=== PATIENT | male | born 1930 | race Caucasian/White ===

== ENCOUNTER 2018-09-23 11:35 | Inpatient (IN) | payer MEDICARE, OTHER ==
[~2018-09-23] VITALS: Ht 167.6 cm; Wt 89.1 kg
[2018-09-23] MEDS ORDERED: METO-93 PO (12:16)
[2018-09-23] MEDS ORDERED: ASPI81TA45 PO (12:16)
[2018-09-23] MEDS ORDERED: DOXA4TAB3 PO (12:16)
[2018-09-23] MEDS ORDERED: LISI-170 PO ×2 (12:16)
[2018-09-23] MEDS ORDERED: OMEP-110 PO (12:16)
[2018-09-23] MEDS ORDERED: DOXA1TAB2 PO (12:16)
[2018-09-23] MEDS ORDERED: TIMO2.5D3 LEFTEYE (12:16)
[2018-09-23] MEDS ORDERED: DILT-8 PO (12:16)
[2018-09-23] MEDS ORDERED: MULT-751 PO (12:16)
[2018-09-23] MEDS ORDERED: SIMV40TA3 PO (12:16)
[2018-09-23] MEDS ORDERED: POTA20TA14 PO (12:16)
[2018-09-23] MEDS ORDERED: LATA7.5D LEFTEYE (12:16)
[2018-09-23] MEDS ORDERED: KRIL1CAP31 PO (12:16)
[2018-09-23] MEDS ORDERED: FURO20TA3 PO (12:16)
[2018-09-23] MEDS ORDERED: ALBUTEROL/IPRATROPIUM 2.5MG/0.5MG, 3 ML ONE (12:17)
--- NOTE | 2018-09-23 12:20 | NUR ---
Patient transported for chest xray
[2018-09-23] MEDS ORDERED: ALBUTEROL/IPRATROPIUM 2.5MG/0.5MG, 3 ML NPPB ONE (12:30)
[2018-09-23 12:36] LABS: BASOPHILS % (AUTO) 0 % (0-1); EOSINOPHILS # (AUTO) 0.03 x10^3/uL (0-0.4); EOSINOPHILS % (AUTO) 0 % (1-7); LYMPHOCYTES # (AUTO) 1.08 x10^3/uL (1-3.4); LYMPHOCYTES % (AUTO) 13 % (22-44); MD NO; MEAN CORPUSCULAR HEMOGLOBIN 32.9 pg (27.5-34.5); MEAN CORPUSCULAR HGB CONC 34.1 g/dL (33.2-36.2); MEAN CORPUSCULAR VOLUME 96.5 fL (81-97); MEAN PLATELET VOLUME 9.4 fL (7.4-10.4); MONOCYTES # (AUTO) 0.62 x10^3/uL (0.2-0.8); MONOCYTES % (AUTO) 7 % (2-9); NEUTROPHILS % (AUTO) 79 % (42-75); PLATELET COUNT 138 x10^3/uL (130-400); RED BLOOD COUNT 3.57 x10^6/uL (4.38-5.82); RED CELL DISTRIBUTION WIDTH 12.8 % (9.4-14.8)
[2018-09-23 12:40] LABS: ALBUMIN 3.4 g/dL (3.4-5.0); ANION GAP 9 mmol/L (5-15); CALCIUM 8.7 mg/dL (8.5-10.1); CHLORIDE 94 mmol/L (98-107)
[2018-09-23 12:44] LABS: ALANINE AMINOTRANSFERASE 33 U/L (12-78); ALKALINE PHOSPHATASE 73 U/L (45-117); BILIRUBIN,TOTAL 0.6 mg/dL (0.2-1.0); CREATININE 0.94 mg/dL (0.7-1.3); TOTAL PROTEIN 6.7 g/dL (6.4-8.2)
--- NOTE | 2018-09-23 14:12 | NUR ---
Pt back from CT, report from Kody HENNESSY. Family at bedside, pt and family deny any needs/concerns.
[2018-09-23] MEDS ORDERED: AZITHROMYCIN 500 MG in SODIUM CHLORIDE 0.9% 250 ML IV ONE (15:30)
[2018-09-23] MEDS ORDERED: CEFTRIAXONE PMX 1GM/50ML 50 ML IV ONE (15:30)
--- NOTE | 2018-09-23 15:39 | NUR ---
Cultures drawn x2
[2018-09-23] MEDS ORDERED: CEFTRIAXONE PMX 1GM/50ML 50 ML ONE (15:44)
[2018-09-23] MEDS ORDERED: SODIUM CHLORIDE 0.9% 1,000 ML IV ONE (16:00)
--- NOTE | 2018-09-23 16:05 | NUR ---
Report to floor RN, abx infusing, pt ready for transport.
[2018-09-23] MEDS: CEFTRIAXONE PMX 1GM/50ML 50 ML IV SCH (16:30)
--- NOTE | 2018-09-23 16:41 | NUR ---
Rocephin complete, zimaisha infusing to floor.
[2018-09-23] MEDS ORDERED: GUAIFENESIN/COD200MG-20MG/10ML LIQUID PO PRN (17:00)
[2018-09-23] MEDS ORDERED: ACETAMINOPHEN 650 MG SUPP PR PRN (17:00)
[2018-09-23] MEDS ORDERED: DOCUSATE 100 MG CAPSULE PO PRN (17:00)
[2018-09-23] MEDS ORDERED: PHARMACY MAY ADJ FOR RENAL FX MC PRN (17:00)
[2018-09-23] MEDS ORDERED: ONDANSETRON 2MG/ML, 2ML IVPB PRN (17:00)
[2018-09-23] MEDS ORDERED: ACETAMINOPHEN 325 MG TABLET PO PRN (17:00)
[2018-09-23 17:13] LABS: THYROID STIMULATING HORMONE 7.23 mIU/L (0.358-3.740)
[2018-09-23] MEDS: GUAIFENESIN 200 MG TABLET PO SCH ×2 (17:20→20:31)
[2018-09-23] MEDS: SODIUM CHLORIDE 0.9% 1,000 ML IV SCH (17:21)
[2018-09-23] MEDS: ENOXAPARIN 40 MG/0.4 ML SQ SCH (17:21)
[2018-09-23] MEDS: DOXYCYCLINE 100 MG in DEXTROSE 5% 250 ML IV SCH (18:31)
[2018-09-23 20:17] VITALS: BP 128/86
[2018-09-23] MEDS: ASPIRIN 81 MG TABLET EC PO SCH (20:31)
[2018-09-23] MEDS: LISINOPRIL 20 MG TABLET PO SCH (20:31)
[2018-09-23] MEDS: SIMVASTATIN 40 MG TABLET PO SCH (20:31)
[2018-09-23] MEDS: DOXAZOSIN 2MG TABLET PO SCH (20:31)
[2018-09-23] MEDS: TIMOLOL OPHTH 0.5%, 5ML LEFTEYE SCH (21:00)
[2018-09-23] MEDS: LATANOPROST OPHTH 0.005%, 2.5ML LEFTEYE SCH (21:51)
[2018-09-23] MEDS: SODIUM CHLORIDE NASAL SPRAY 45ML BOTTLE NAS SCH (21:52)
[2018-09-23 22:14] LABS: MICROSCOPIC NOT IND
[2018-09-23 22:16] LABS: CULTURE INDICATED? NO
[2018-09-24 01:41] VITALS: BP 177/80
[2018-09-24] MEDS: DOXYCYCLINE 100 MG in DEXTROSE 5% 250 ML IV SCH ×2 (05:53→19:08)
[2018-09-24] MEDS: GUAIFENESIN 200 MG TABLET PO SCH ×2 (05:53→11:53)
[2018-09-24 06:15] LABS: BASOPHILS # (AUTO) 0.01 x10^3/uL (0-0.1); BASOPHILS % (AUTO) 0 % (0-1); EOSINOPHILS # (AUTO) 0.02 x10^3/uL (0-0.4); EOSINOPHILS % (AUTO) 0 % (1-7); LYMPHOCYTES # (AUTO) 0.97 x10^3/uL (1-3.4); LYMPHOCYTES % (AUTO) 14 % (22-44); MD NO; MEAN CORPUSCULAR HEMOGLOBIN 33.2 pg (27.5-34.5); MEAN CORPUSCULAR HGB CONC 34.5 g/dL (33.2-36.2); MEAN CORPUSCULAR VOLUME 96.2 fL (81-97); MEAN PLATELET VOLUME 10.8 fL (7.4-10.4); MONOCYTES # (AUTO) 0.56 x10^3/uL (0.2-0.8); MONOCYTES % (AUTO) 8 % (2-9); NEUTROPHILS # (AUTO) 5.59 x10^3/uL (1.8-6.8); NEUTROPHILS % (AUTO) 78 % (42-75); PLATELET COUNT 132 x10^3/uL (130-400); RED BLOOD COUNT 3.26 x10^6/uL (4.38-5.82); RED CELL DISTRIBUTION WIDTH 12.6 % (9.4-14.8)
[2018-09-24 06:22] LABS: ANION GAP 9 mmol/L (5-15); CALCIUM 8.3 mg/dL (8.5-10.1); CHLORIDE 93 mmol/L (98-107)
[2018-09-24 06:23] LABS: CREATININE 0.86 mg/dL (0.7-1.3)
[2018-09-24 07:36] VITALS: BP 181/80
[2018-09-24] MEDS: OMEPRAZOLE 20 MG CAPSULE.DR PO SCH (08:16)
[2018-09-24] MEDS: SODIUM CHLORIDE NASAL SPRAY 45ML BOTTLE NAS SCH ×2 (08:16→21:17)
[2018-09-24] MEDS: METOPROLOL SUCCINATE 50 MG TAB.ER.24H PO SCH (08:16)
[2018-09-24] MEDS: DOXAZOSIN 1MG TABLET PO SCH (08:16)
[2018-09-24] MEDS: DILTIAZEM 120 MG CAP.ER.24H PO SCH (08:16)
[2018-09-24] MEDS: OMEGA-3/FISH OIL CAPSULE PO SCH (08:16)
[2018-09-24] MEDS: MULTIVITAMINS/MINERALS TABLET PO SCH (08:16)
[2018-09-24] MEDS: SODIUM CHLORIDE 0.9% 1,000 ML IV SCH (08:22)
[2018-09-24] MEDS: TIMOLOL OPHTH 0.5%, 5ML LEFTEYE SCH ×2 (09:00→21:00)
[2018-09-24 13:23] VITALS: BP 179/84
[2018-09-24] MEDS ORDERED: FUROSEMIDE 40 MG/4 ML IV ONE (16:30)
[2018-09-24] MEDS: ENOXAPARIN 40 MG/0.4 ML SQ SCH (17:16)
[2018-09-24] MEDS: CEFTRIAXONE PMX 1GM/50ML 50 ML IV SCH (18:10)
[2018-09-24 19:21] VITALS: BP 193/99
[2018-09-24] MEDS: DOXAZOSIN 2MG TABLET PO SCH (21:15)
[2018-09-24] MEDS: SIMVASTATIN 40 MG TABLET PO SCH (21:16)
[2018-09-24] MEDS: GUAIFENESIN ER 600 MG TABLET PO SCH (21:16)
[2018-09-24] MEDS: LISINOPRIL 20 MG TABLET PO SCH (21:16)
[2018-09-24] MEDS: ASPIRIN 81 MG TABLET EC PO SCH (21:17)
[2018-09-24] MEDS: LATANOPROST OPHTH 0.005%, 2.5ML LEFTEYE SCH (21:17)
[2018-09-25] MEDS: DIPHENHYDRAMINE 25 MG CAPSULE PO PRN (00:35)
[2018-09-25 00:43] VITALS: BP 169/89
[2018-09-25] MEDS: DOXYCYCLINE 100 MG in DEXTROSE 5% 250 ML IV SCH ×2 (06:12→17:37)
[2018-09-25 08:06] VITALS: BP 143/90
[2018-09-25 08:31] LABS: BASOPHILS # (AUTO) 0.02 x10^3/uL (0-0.1); BASOPHILS % (AUTO) 0 % (0-1); EOSINOPHILS % (AUTO) 0 % (1-7); LYMPHOCYTES # (AUTO) 1.01 x10^3/uL (1-3.4); LYMPHOCYTES % (AUTO) 10 % (22-44); MD NO; MEAN CORPUSCULAR HEMOGLOBIN 32.3 pg (27.5-34.5); MEAN CORPUSCULAR VOLUME 95.1 fL (81-97); MONOCYTES # (AUTO) 0.68 x10^3/uL (0.2-0.8); MONOCYTES % (AUTO) 7 % (2-9); NEUTROPHILS # (AUTO) 7.98 x10^3/uL (1.8-6.8); NEUTROPHILS % (AUTO) 82 % (42-75); PLATELET COUNT 159 x10^3/uL (130-400); RED BLOOD COUNT 3.45 x10^6/uL (4.38-5.82); RED CELL DISTRIBUTION WIDTH 12.7 % (9.4-14.8)
[2018-09-25 08:38] LABS: ANION GAP 11 mmol/L (5-15); CALCIUM 8.3 mg/dL (8.5-10.1); CHLORIDE 86 mmol/L (98-107); CREATININE 0.84 mg/dL (0.7-1.3)
[2018-09-25] MEDS: TIMOLOL OPHTH 0.5%, 5ML LEFTEYE SCH ×2 (09:00→19:11)
[2018-09-25] MEDS ORDERED: FUROSEMIDE 40 MG/4 ML IV SCH (09:00)
[2018-09-25] MEDS: MULTIVITAMINS/MINERALS TABLET PO SCH (10:00)
[2018-09-25] MEDS: OMEPRAZOLE 20 MG CAPSULE.DR PO SCH (10:00)
[2018-09-25] MEDS: METOPROLOL SUCCINATE 50 MG TAB.ER.24H PO SCH (10:00)
[2018-09-25] MEDS: DOXAZOSIN 1MG TABLET PO SCH (10:00)
[2018-09-25] MEDS: OMEGA-3/FISH OIL CAPSULE PO SCH (10:00)
[2018-09-25] MEDS: DILTIAZEM 120 MG CAP.ER.24H PO SCH (10:01)
[2018-09-25] MEDS: GUAIFENESIN ER 600 MG TABLET PO SCH ×2 (10:01→20:47)
[2018-09-25] MEDS: SODIUM CHLORIDE NASAL SPRAY 45ML BOTTLE NAS SCH ×2 (10:01→20:46)
[2018-09-25] MEDS ORDERED: POTASSIUM CHLORIDE 20 MEQ TAB.ER.PRT PO ONE (10:30)
[2018-09-25] MEDS ORDERED: MAGNESIUM SULFATE PMX 2GM/50ML 50 ML IV ONE (11:00)
[2018-09-25] MEDS: SODIUM CHLORIDE 0.9% 1,000 ML IV SCH ×2 (11:20→20:46)
[2018-09-25 12:14] VITALS: BP 138/88
[2018-09-25 14:49] LABS: CHLORIDE,URINE RANDOM 120 mmol/L; POTASSIUM,URINE RANDOM 53 mmol/L; SODIUM,URINE RANDOM 59 mmol/L
[2018-09-25 15:46] LABS: OSMOLALITY,URINE 356 mOsm/kg (500-850)
[2018-09-25] MEDS: ENOXAPARIN 40 MG/0.4 ML SQ SCH (17:04)
[2018-09-25] MEDS: CEFTRIAXONE PMX 1GM/50ML 50 ML IV SCH (17:04)
[2018-09-25] MEDS: LATANOPROST OPHTH 0.005%, 2.5ML LEFTEYE SCH (19:11)
[2018-09-25 19:14] VITALS: BP 130/75
[2018-09-25] MEDS: SIMVASTATIN 40 MG TABLET PO SCH (20:47)
[2018-09-25] MEDS: DOXAZOSIN 2MG TABLET PO SCH (20:47)
[2018-09-25] MEDS: LISINOPRIL 20 MG TABLET PO SCH (20:47)
[2018-09-25] MEDS: ASPIRIN 81 MG TABLET EC PO SCH (20:47)
[2018-09-26 03:10] VITALS: BP 131/77
[2018-09-26] MEDS: DOXYCYCLINE 100 MG in DEXTROSE 5% 250 ML IV SCH (06:07)
[2018-09-26 06:53] VITALS: BP 148/64
[2018-09-26] MEDS: SODIUM CHLORIDE 0.9% 1,000 ML IV SCH (08:00)
[2018-09-26 08:59] LABS: ALBUMIN 2.7 g/dL (3.4-5.0); ANION GAP 8 mmol/L (5-15); CALCIUM 7.8 mg/dL (8.5-10.1); CHLORIDE 85 mmol/L (98-107); CREATININE 0.75 mg/dL (0.7-1.3)
[2018-09-26] MEDS: MULTIVITAMINS/MINERALS TABLET PO SCH (09:00)
[2018-09-26] MEDS: DILTIAZEM 120 MG CAP.ER.24H PO SCH (09:00)
[2018-09-26] MEDS: SODIUM CHLORIDE NASAL SPRAY 45ML BOTTLE NAS SCH ×2 (09:00→20:30)
[2018-09-26] MEDS: GUAIFENESIN ER 600 MG TABLET PO SCH ×2 (09:00→20:30)
[2018-09-26] MEDS: OMEGA-3/FISH OIL CAPSULE PO SCH (09:00)
[2018-09-26] MEDS: DOXAZOSIN 1MG TABLET PO SCH (09:00)
[2018-09-26] MEDS: METOPROLOL SUCCINATE 50 MG TAB.ER.24H PO SCH (09:00)
[2018-09-26] MEDS: OMEPRAZOLE 20 MG CAPSULE.DR PO SCH (09:00)
[2018-09-26] MEDS: TIMOLOL OPHTH 0.5%, 5ML LEFTEYE SCH ×2 (09:00→19:58)
[2018-09-26 12:35] VITALS: BP 146/73
[2018-09-26] MEDS: ENOXAPARIN 40 MG/0.4 ML SQ SCH (16:42)
[2018-09-26] MEDS: POTASSIUM CHLORIDE 20 MEQ TAB.ER.PRT PO SCH (16:42)
[2018-09-26] MEDS: CEFTRIAXONE PMX 1GM/50ML 50 ML IV SCH (16:42)
[2018-09-26 19:23] VITALS: BP 122/78
[2018-09-26] MEDS: LATANOPROST OPHTH 0.005%, 2.5ML LEFTEYE SCH (20:29)
[2018-09-26] MEDS: DOXAZOSIN 2MG TABLET PO SCH (20:30)
[2018-09-26] MEDS: LISINOPRIL 20 MG TABLET PO SCH (20:30)
[2018-09-26] MEDS: SIMVASTATIN 40 MG TABLET PO SCH (20:30)
[2018-09-26] MEDS: ASPIRIN 81 MG TABLET EC PO SCH (20:31)
[2018-09-27] MEDS: DIPHENHYDRAMINE 25 MG CAPSULE PO PRN (01:11)
[2018-09-27 01:15] VITALS: BP 136/58
[2018-09-27 07:22] LABS: ANION GAP 10 mmol/L (5-15); CALCIUM 8.2 mg/dL (8.5-10.1); CHLORIDE 86 mmol/L (98-107); CREATININE 0.73 mg/dL (0.7-1.3)
[2018-09-27 07:35] VITALS: BP 159/77
[2018-09-27] MEDS: DOXAZOSIN 1MG TABLET PO SCH (08:45)
[2018-09-27] MEDS: GUAIFENESIN ER 600 MG TABLET PO SCH ×2 (08:48→21:36)
[2018-09-27] MEDS: OMEGA-3/FISH OIL CAPSULE PO SCH (08:48)
[2018-09-27] MEDS: OMEPRAZOLE 20 MG CAPSULE.DR PO SCH (08:48)
[2018-09-27] MEDS: POTASSIUM CHLORIDE 20 MEQ TAB.ER.PRT PO SCH ×2 (08:49→16:50)
[2018-09-27] MEDS: SODIUM CHLORIDE NASAL SPRAY 45ML BOTTLE NAS SCH ×2 (08:50→21:35)
[2018-09-27] MEDS: DILTIAZEM 120 MG CAP.ER.24H PO SCH (08:50)
[2018-09-27] MEDS: MULTIVITAMINS/MINERALS TABLET PO SCH (08:51)
[2018-09-27] MEDS: METOPROLOL SUCCINATE 50 MG TAB.ER.24H PO SCH (08:51)
[2018-09-27] MEDS: TIMOLOL OPHTH 0.5%, 5ML LEFTEYE SCH ×2 (08:52→19:43)
[2018-09-27] MEDS: FUROSEMIDE 40 MG/4 ML IV SCH (11:24)
[2018-09-27 13:41] VITALS: BP 128/71
[2018-09-27 15:43] LABS: ANION GAP 8 mmol/L (5-15); CHLORIDE 86 mmol/L (98-107)
[2018-09-27 15:45] LABS: CREATININE 0.87 mg/dL (0.7-1.3)
[2018-09-27] MEDS: ENOXAPARIN 40 MG/0.4 ML SQ SCH (16:50)
[2018-09-27] MEDS: CEFTRIAXONE PMX 1GM/50ML 50 ML IV SCH (16:50)
[2018-09-27 20:00] VITALS: BP 165/85
[2018-09-27] MEDS: ASPIRIN 81 MG TABLET EC PO SCH (21:35)
[2018-09-27] MEDS: LATANOPROST OPHTH 0.005%, 2.5ML LEFTEYE SCH (21:35)
[2018-09-27] MEDS: DOXAZOSIN 2MG TABLET PO SCH (21:36)
[2018-09-27] MEDS: SIMVASTATIN 40 MG TABLET PO SCH (21:36)
[2018-09-27] MEDS: LISINOPRIL 20 MG TABLET PO SCH (21:36)
[2018-09-28 02:00] VITALS: BP_SYST 156; BP_SYST 165; BP_DIAS 63; BP_DIAS 85
[2018-09-28 07:21] VITALS: BP 162/81
[2018-09-28] MEDS: DILTIAZEM 120 MG CAP.ER.24H PO SCH (08:18)
[2018-09-28] MEDS: MULTIVITAMINS/MINERALS TABLET PO SCH (08:18)
[2018-09-28] MEDS: OMEGA-3/FISH OIL CAPSULE PO SCH (08:18)
[2018-09-28] MEDS: OMEPRAZOLE 20 MG CAPSULE.DR PO SCH (08:18)
[2018-09-28] MEDS: POTASSIUM CHLORIDE 20 MEQ TAB.ER.PRT PO SCH ×2 (08:19→17:52)
[2018-09-28] MEDS: METOPROLOL SUCCINATE 50 MG TAB.ER.24H PO SCH (08:19)
[2018-09-28] MEDS: DOXAZOSIN 1MG TABLET PO SCH (08:19)
[2018-09-28] MEDS: FUROSEMIDE 40 MG/4 ML IV SCH (08:20)
[2018-09-28] MEDS: TIMOLOL OPHTH 0.5%, 5ML LEFTEYE SCH ×2 (08:20→20:07)
[2018-09-28] MEDS: SODIUM CHLORIDE NASAL SPRAY 45ML BOTTLE NAS SCH ×2 (08:21→20:06)
[2018-09-28] MEDS: GUAIFENESIN ER 600 MG TABLET PO SCH ×2 (08:32→20:07)
[2018-09-28 09:01] LABS: ALBUMIN 3.1 g/dL (3.4-5.0); ANION GAP 11 mmol/L (5-15); CALCIUM 8.6 mg/dL (8.5-10.1); CHLORIDE 87 mmol/L (98-107); CREATININE 0.73 mg/dL (0.7-1.3)
[2018-09-28 13:51] VITALS: BP 127/63
[2018-09-28] MEDS: CEFTRIAXONE PMX 1GM/50ML 50 ML IV SCH (16:21)
[2018-09-28] MEDS: ENOXAPARIN 40 MG/0.4 ML SQ SCH (17:52)
[2018-09-28 19:57] VITALS: BP 189/80
[2018-09-28] MEDS: SIMVASTATIN 40 MG TABLET PO SCH (20:06)
[2018-09-28] MEDS: LISINOPRIL 20 MG TABLET PO SCH (20:06)
[2018-09-28] MEDS: LATANOPROST OPHTH 0.005%, 2.5ML LEFTEYE SCH (20:06)
[2018-09-28] MEDS: ASPIRIN 81 MG TABLET EC PO SCH (20:07)
[2018-09-28] MEDS: DOXAZOSIN 2MG TABLET PO SCH (20:07)
[2018-09-28 21:00] VITALS: BP 165/85
[2018-09-29 03:13] VITALS: BP 152/66
[2018-09-29 06:45] VITALS: BP 147/68
[2018-09-29 07:41] LABS: BASOPHILS # (AUTO) 0.03 x10^3/uL (0-0.1); BASOPHILS % (AUTO) 0 % (0-1); EOSINOPHILS # (AUTO) 0.03 x10^3/uL (0-0.4); EOSINOPHILS % (AUTO) 1 % (1-7); LYMPHOCYTES # (AUTO) 1.17 x10^3/uL (1-3.4); LYMPHOCYTES % (AUTO) 18 % (22-44); MD NO; MEAN CORPUSCULAR HEMOGLOBIN 31.9 pg (27.5-34.5); MEAN CORPUSCULAR HGB CONC 33.2 g/dL (33.2-36.2); MONOCYTES % (AUTO) 9 % (2-9); NEUTROPHILS # (AUTO) 4.62 x10^3/uL (1.8-6.8); NEUTROPHILS % (AUTO) 72 % (42-75); PLATELET COUNT 199 x10^3/uL (130-400); RED BLOOD COUNT 3.44 x10^6/uL (4.38-5.82); RED CELL DISTRIBUTION WIDTH 12.3 % (9.4-14.8)
[2018-09-29 07:56] LABS: ANION GAP 10 mmol/L (5-15); CALCIUM 8.3 mg/dL (8.5-10.1); CHLORIDE 91 mmol/L (98-107)
[2018-09-29] MEDS: FUROSEMIDE 40 MG/4 ML IV SCH (09:17)
[2018-09-29] MEDS: GUAIFENESIN ER 600 MG TABLET PO SCH (09:17)
[2018-09-29] MEDS: OMEGA-3/FISH OIL CAPSULE PO SCH (09:17)
[2018-09-29] MEDS: POTASSIUM CHLORIDE 20 MEQ TAB.ER.PRT PO SCH (09:17)
[2018-09-29] MEDS: METOPROLOL SUCCINATE 50 MG TAB.ER.24H PO SCH (09:18)
[2018-09-29] MEDS: OMEPRAZOLE 20 MG CAPSULE.DR PO SCH (09:18)
[2018-09-29] MEDS: DILTIAZEM 120 MG CAP.ER.24H PO SCH (09:18)
[2018-09-29] MEDS: DOXAZOSIN 1MG TABLET PO SCH (09:18)
[2018-09-29] MEDS: TIMOLOL OPHTH 0.5%, 5ML LEFTEYE SCH (09:19)
[2018-09-29] MEDS: SODIUM CHLORIDE NASAL SPRAY 45ML BOTTLE NAS SCH (09:19)
[2018-09-29] MEDS: MULTIVITAMINS/MINERALS TABLET PO SCH (09:19)
[2018-09-29] MEDS ORDERED: FURO20TA3 PO (13:06)
[2018-09-29] MEDS ORDERED: CEFD300C37 PO (13:07)
== END 2018-09-29 14:30 | disposition home or self-care (01) | DRG 640 ==
LOC: ED 14:29 → EDIP 16:05 → 3NE 16:45 → DCLOUNGE 09-29 14:17
PROVIDERS: ADMIT Internal Medicine; ATTEND Internal Medicine
DX: E87.1 Hypo-osmolality and hyponatremia (principal); J18.9 Pneumonia, unspecified organism; J90 Pleural effusion, not elsewhere classified; E87.70 Fluid overload, unspecified; E55.9 Vitamin D deficiency, unspecified; E74.39 Other disorders of intestinal carbohydrate absorption; E78.5 Hyperlipidemia, unspecified; H35.30 Unspecified macular degeneration; I08.0 Rheumatic disorders of both mitral and aortic valves; I11.9 Hypertensive heart disease without heart failure; H40.9 Unspecified glaucoma; I25.10 Atherosclerotic heart disease of native coronary artery without angina pectoris; K21.9 Gastro-esophageal reflux disease without esophagitis; M25.78 Osteophyte, vertebrae; N40.0 Benign prostatic hyperplasia without lower urinary tract symptoms; Z82.49 Family history of ischemic heart disease and other diseases of the circulatory system; Z95.5 Presence of coronary angioplasty implant and graft; Z87.891 Personal history of nicotine dependence
CPT/HCPCS: 36415; 71046; 71250; 80048; 80053; 81003; 82040; 82436; 83605; 83735; 83880; 83930; 83935; 84133; 84145; 84300; 84443; 85025; 87040; 87070; 87205; 93005; 93306; 94640; 96365; 96375; 99285; G0378; J0456; J0696; J1650; J1940; J7060; J7620; J3475; J7030; J7050; Q0163

== ENCOUNTER → 2019-06-15 | Outpatient (CLI) | payer MEDICARE ==
[~2019-06-15] MED LIST: ASPI81TA45 PO; CEFD300C37 PO; DILT-8 PO; DOXA1TAB2 PO; DOXA4TAB3 PO; FURO20TA3 PO; KRIL1CAP31 PO; LATA7.5D LEFTEYE; LISI-170 PO; METO-93 PO; MULT-751 PO; OMEP-110 PO; POTA20TA14 PO; SIMV40TA3 PO; TIMO2.5D4 LEFTEYE
== END | disposition home or self-care (01) ==
LOC: CFH 09:47
PROVIDERS: ATTEND Internal Medicine Cardiovascular Disease
DX: J18.8 Other pneumonia, unspecified organism (principal); J90 Pleural effusion, not elsewhere classified; I48.91 Unspecified atrial fibrillation; I25.10 Atherosclerotic heart disease of native coronary artery without angina pectoris; I10 Essential (primary) hypertension; E87.1 Hypo-osmolality and hyponatremia; D68.9 Coagulation defect, unspecified
CPT/HCPCS: 71046

== ENCOUNTER → 2020-06-07 | Outpatient (CLI) | payer MEDICARE ==
[~2020-06-07] MED LIST changes: +SIMV40TA20 PO; -SIMV40TA3 PO
== END | disposition home or self-care (01) ==
LOC: CFH 08:27
PROVIDERS: ATTEND Internal Medicine Cardiovascular Disease
DX: I08.3 Combined rheumatic disorders of mitral, aortic and tricuspid valves (principal); I11.9 Hypertensive heart disease without heart failure
CPT/HCPCS: 93306